=== PATIENT | female | born 1965 | race Caucasian/White ===

== ENCOUNTER 2016-09-09 20:33 | Emergency (ER) | payer OTHER ==
--- NOTE | 2016-09-10 00:03 | DIAGNOSTIC IMAGING REPORT ---
PROCEDURE: ABDOMEN/PELVIS WITH CONTRAST CLINICAL INDICATION: ABDOMINAL PAIN TECHNIQUE: 125 ml of Isovue 300 were injected intravenously and axial images were obtained of the abdomen and pelvis with sagittal and coronal reformations. COMPARISON: 04/04/2016 FINDINGS: ABDOMEN: Minor bibasilar atelectasis. Normal sized heart. No hiatal hernia. Peripherally calcified 19 mm gallstone in the fundus. Chronic dilatation of the left extrarenal pelvis with normal/diminutive caliber left ureter consistent with chronic or congenital ureteropelvic junction obstruction. Minimally prominent right extrarenal pelvis. The liver, adrenal glands, pancreas and spleen are normal. The abdominal aorta is normal in its course and caliber. Minor atherosclerosis. There are no suspicious calcifications, retroperitoneal adenopathy or masses. The stomach, upper bowel loops, and mesentery are normal. Intact anterior abdominal wall. No free fluid or inflammation. PELVIS: The appendix and pelvic small bowel loops are normal. Normal amount of stool in the colon and rectum. The uterus is surgically absent. The urinary bladder, and pelvic vessels are normal. No adenopathy, free fluid, or pelvic mass. Degenerative disc endplate change at L4-5. IMPRESSION: 1. No acute process. 2. 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 3. Cholelithiasis. 4. No evidence of diverticulitis. 5. Findings called to the emergency room. All CT scans at this facility use dose modulation, iterative reconstruction, and/or weight-based dosing when appropriate to reduce radiation dose to as low as reasonably achievable.
--- NOTE | 2016-09-10 00:05 | ED NURSING NOTES ---
Clinical Report - Nurses [facility] [address] [place] [address] 09/09/2016 20:33 Patient: DAVID LAND TRIAGE Triage time 2100 PM. Acuity: LEVEL 3. Chief Complaint: ABDOMINAL PAIN and NAUSEA and FLANK PAIN. Alert. No acute distress. --21:09 Pj Chow R.N. 20:59 09/09/16. BP: 124/73. HR: 73. RR: 16. O2 saturation: 97%. Temp: 98.7 F (oral). Pain level now: 02/27. --21:09 Pj Chow R.N. Weight: 77.1 kg estimated. Height/Length: 66 inches Estimated. BMI: 27.4. --00:18 jP Chow R.N. Medications Multivitamins Oral. --21:10 Pj Chow R.N. Allergies Antifungal. ASA. Avelox. --21:10 Pj Chow R.N. Azithromycin. Carbamazepine. Celecoxib. Cephalosporins. Flagyl. Fomepizole. Gabapentin. Imidazole Antifungals. Imitrex. Indocin. Lyrica. Miclol. Naprosyn. PCN. Percocet. Percodan. Quinolones. Rofecoxib. Salicylates. Toradol. Tramadol HCL. --21:10 Pj Chow R.N. History Arrived by private vehicle. Historian: patient. Accompanied by family. This started today. Onset was abrupt. Worsened while participating in moderate exertion. Symptoms are constant (about 4:30 to 5pm this afternoon while at [employer]). She has had nausea. Treatment HEART SURGEON: Applied heat. Took Tylenol and ibuprofen. PAST MEDICAL HX: Immunizations: up-to-date. SOCIAL HX: Never smoker. Occasional alcohol use. History of drug use. (no). FALL RISK ASSESSMENT: Fall risk assessment completed. No fall risk identified. NUTRITIONAL RISK ASSESSMENT: The nutritional risk assessment revealed no deficiencies. FUNCTIONAL ASSESSMENT: Functional assessment: no impairments noted. LEARNING NEEDS ASSESSMENT: The learning needs assessment revealed no barriers. SKIN INTEGRITY ASSESSMENT: Skin integrity risk assessment completed. No skin integrity risk identified. --: Pj Chow R.N. PROBLEMS: Diverticulitis. Abdominal Pain. Cystitis. Herniated Disk. Hypertension. Sprain. Otitis Media. Otitis Externa. Paget's Disease. Fall. Contusion. Asthma. Back Pain. --21: Pj Chow R.N. ADDITIONAL SURGERIES: . Fracture Repair. Hysterectomy. Knee Surgery. Laparoscopy. Shoulder Surgery. --21: Pj Chow R.N. Interventions ID band on patient. To treatment room. --: Pj Chow R.N. PHYSICAL ASSESSMENT Ambulatory to room. GENERAL / NEURO / PSYCH: Alert. Oriented X 4. Appears in no acute distress. HEENT: Mucous membranes are pink. RESPIRATORY: Respirations not labored. Breath sounds within normal limits. CVS: Normal sinus rhythm noted. Capillary refill less than 2 seconds. GI / : The patient has had nausea. Abdominal tenderness in the left upper quadrant, left side of the abdomen and left lower quadrant. Guarding present. SKIN: Skin is warm and dry. --: Pj Chow R.N. NURSING PROGRESS NOTES 21:09/09/2016 Site #1 started via IV in the left antecubital space with an 18g angiocath; one attempt. Blood drawn: rainbow set. Labeled in the presence of the patient and sent to the lab. Saline lock flushed. --: Pj Chow R.N. :09/09/2016 Started IV Fluids IV NS (Saline); bolus of 500 mL wide open then at 125 mL/hr over 4 hour(s) via site #1. Allergies verified and confirmed 5 rights. IV patency established. IV site checked: no pain, redness, or swelling. IV flushed thoroughly pre- and post-medication administration. --: Pj Chow R.N. 09/09/2016 Dilaudid (HYDROmorphone HCl PF) IVP 0.5 mg given over 2 minute(s) via site #1. Allergies verified, confirmed 5 rights and sedative warning given to the patient. IV patency established. IV site checked: no pain, redness, or swelling. IV flushed thoroughly pre- and post-medication administration. IVP given by RN. --: Pj Chow R.N. 21:09/09/2016 Zofran (Ondansetron HCl) IVP 4 mg given over 2 minute(s) via site #1. Allergies verified and confirmed 5 rights. IV patency established. IV site checked: no pain, redness, or swelling. IV flushed thoroughly pre- and post-medication administration. IVP given by RN. --: Pj Chow R.N. Reassurance given. Call light placed in reach. Side rails up x 2. Bed placed in lowest position. Brakes of bed on. --:28 Pj Chow R.N. DISPOSITION / DISCHARGE Condition at departure: improved. The goals identified in the patient's plan of care were met. No learning barriers present. Reviewed medication(s) side effects, precautions, dosing and course information. Prescription(s) given to the patient. Patient verbalized understanding. Written instructions provided in Vietnamese. The patient was discharged home and accompanied by family. She left the Emergency Department ambulatory and via private vehicle. Family member driving. FALL RISK ASSESSMENT: Fall risk assessment completed. No fall risk identified. --00:17 Pj Chow R.N. 00:15 09/10/16. BP: 156/87. HR: 70. RR: 16. O2 saturation: 99%. Temp: 98 F. Pain level now: 02/27. --00:17 Pj Chow R.N. Departure time: 0018 AM. --00:18 Pj Chow R.N. 00:18 09/10/2016 Site #1 removed upon discharge. Catheter intact. Pressure dressing applied. --00:18 Pj Chow R.N. 00:18 09/10/2016 IV Fluids IV NS Discontinued: bag #1 upon discharge. Total amount infused: 400 mL. IV patency established. IV site checked: no pain, redness, or swelling. IV flushed thoroughly. --00:18 Pj Chow R.N. Locked/Released at 09/10/2016 0:20 by Pj Chow R.N.
--- NOTE | 2016-09-10 00:05 | ED ORDER SUMMARY ---
..... Patient: DAVID LAND OrderSheet [facility] VisitID: [id number] [address] [place] [address] 51y, F Registration Date/Time: 09/09/2016 ORDER SHEET Weight: 77.1 kg (estimated) Allergies: Antifungal, ASA, Avelox, Azithromycin, Carbamazepine, Celecoxib, Cephalosporins, Flagyl, Fomepizole, Gabapentin, Imidazole Antifungals, Imitrex, Indocin, Lyrica, Miclol, Naprosyn, PCN, Percocet, Percodan, Quinolones, Rofecoxib, Salicylates, Toradol, Tramadol HCL GENERAL ORDERS: UA-Culture if indicated Urgent (20:55 09/09/2016 HOShaughnessy R.N. per protocol) (Ack 20:57 LMuller) (21:12 HOShaughnessy R.N.) Urine Urgent (20:55 09/09/2016 HOShaughnessy R.N. per protocol) (Ack 20:57 LMuller) (21:12 HOShaughnessy R.N.) CBC w Diff Urgent (21:09/09/2016 Sarmad MALONE) (Ack 21:12 LMuller) (21:24 HOShaughnessy R.N.) CMP Urgent (21:09/09/2016 Sarmad MALONE) (Ack 21:12 LMuller) (21:24 HOShaughnessy R.N.) Amylase Urgent (21:09/09/2016 Sarmad MALONE) (Ack 21:12 LMuller) (21:24 HOShaughnessy R.N.) Lipase Urgent (21:09/09/2016 Sarmad MALONE) (Ack 21:12 LMuller) (21:24 HOShaughnessy R.N.) NPO (21:09/09/2016 Sarmad MALONE) (21:24 HOShaughnessy R.N.) CT Abd/Pel w Cont (No) (see report) Urgent (23:28 09/09/2016 Sarmad MALONE) (23:38 LMuller) MEDICATION ORDERS: IV FLUIDS: IV NS : initial bolus 500 mL (1000 mL/hr), then 125 mL/hr for 4h (NOW); Urgent (21:09/09/2016 Sarmad MALONE) (21:26 Bernardo R.N.) Dilaudid IV 0.5 mg (HIGH ALERT MEDICATION, NOW) (21:09/09/2016 Sarmad MALONE) (21:26 Bernardo Iverson.N.) Zofran IV 4 mg (NOW) (21:09/09/2016 Sarmad MALONE) (21:26 Bernardo R.N.) ORDER SHEET NOTES: [Electronically signed by Pj Chow R.N. (00:20 09/10/2016)] [Electronically signed by Fausto Parker MD (07:53 09/10/2016)] [Electronically locked/signed by Pj Chow R.N. (00:20 09/10/2016)]
--- NOTE | 2016-09-10 00:05 | ED ORDER SUMMARY ---
..... Patient: DAVID LAND OrderSheet [facility] VisitID: [id number] [address] [place] [address] 51y, F Registration Date/Time: 09/09/2016 ORDER SHEET Weight: 77.1 kg (estimated) Allergies: Antifungal, ASA, Avelox, Azithromycin, Carbamazepine, Celecoxib, Cephalosporins, Flagyl, Fomepizole, Gabapentin, Imidazole Antifungals, Imitrex, Indocin, Lyrica, Miclol, Naprosyn, PCN, Percocet, Percodan, Quinolones, Rofecoxib, Salicylates, Toradol, Tramadol HCL GENERAL ORDERS: UA-Culture if indicated Urgent (20:55 09/09/2016 HOShaughnessy R.N. per protocol) (Ack 20:57 LMuller) (21:12 HOShaughnessy R.N.) Urine Urgent (20:55 09/09/2016 HOShaughnessy R.N. per protocol) (Ack 20:57 LMuller) (21:12 HOShaughnessy R.N.) CBC w Diff Urgent (21:09/09/2016 Sarmad MALONE) (Ack 21:12 LMuller) (21:24 HOShaughnessy R.N.) CMP Urgent (21:09/09/2016 Sarmad MALONE) (Ack 21:12 LMuller) (21:24 HOShaughnessy R.N.) Amylase Urgent (21:09/09/2016 Sarmad MALONE) (Ack 21:12 LMuller) (21:24 HOShaughnessy R.N.) Lipase Urgent (21:09/09/2016 Sarmad MALONE) (Ack 21:12 LMuller) (21:24 HOShaughnessy R.N.) NPO (21:09/09/2016 Sarmad MALONE) (21:24 HOShaughnessy R.N.) CT Abd/Pel w Cont (No) (see report) Urgent (23:28 09/09/2016 Sarmad MALONE) (23:38 LMuller) MEDICATION ORDERS: IV FLUIDS: IV NS : initial bolus 500 mL (1000 mL/hr), then 125 mL/hr for 4h (NOW); Urgent (21:09/09/2016 Sarmad MALONE) (21:26 Bernardo R.N.) Dilaudid IV 0.5 mg (HIGH ALERT MEDICATION, NOW) (21:09/09/2016 Sarmad MALONE) (21:26 Bernardo Iverson.N.) Zofran IV 4 mg (NOW) (21:09/09/2016 Sarmad MALONE) (21:26 Bernardo R.N.) ORDER SHEET NOTES: [Electronically signed by Pj Chow R.N. (00:20 09/10/2016)] [Electronically signed by Fausto Parker MD (07:53 09/10/2016)] [Electronically locked/signed by Pj Chow R.N. (00:20 09/10/2016)]
--- NOTE | 2016-09-10 00:05 | ED CLINICAL REPORT ---
Clinical Report - Physicians/Mid Levels [facility] [address] [place] [address] 09/09/2016 20:33 Patient: DAVID LAND Time Seen: 21:03. Arrived- By private vehicle. Historian- patient. HISTORY OF PRESENT ILLNESS Chief Complaint: ABDOMINAL PAIN. At its maximum, severity described as 9 / 10. When seen in the E.D., severity described as 8 / 10. Modifying factors- worsened by movement. This started today about 4:30 PM and is still present. It was abrupt in onset and has been constant. It is described as sharp. No radiation. It is described as located in the left abdomen and left lower quadrant. The patient has had nausea and loss of appetite. No vomiting or diarrhea. No recent travel. REVIEW OF SYSTEMS Has had a hysterectomy. Last bowel movement: today. All systems otherwise negative, except as recorded above. PAST HISTORY PCP - Fahad. Problems: Diverticulitis. Abdominal Pain. Cystitis. Herniated Disk. Hypertension. Sprain. Otitis Media. Paget's Disease. Fall. Contusion. Asthma. Back Pain. Medications: Multivitamins Oral. Allergies: Antifungal. ASA. Avelox. Azithromycin. Carbamazepine. Celecoxib. Cephalosporins. Flagyl. Fomepizole. Gabapentin. Imidazole Antifungals. Imitrex. Indocin. Lyrica. Miclol. Naprosyn. PCN. Percocet. Percodan. Quinolones. Rofecoxib. Salicylates. Toradol. Tramadol HCL. SOCIAL HISTORY Never smoker. Occasional alcohol use. No drug use. Residence: [place]. FAMILY HISTORY Heart disease in first-degree relative (father); stroke in grandparent; cancer in grandparent. ADDITIONAL NOTES The nursing notes have been reviewed. PHYSICAL EXAM Vital Signs: 09/09/2016 20:59 BP: 124/73. HR: 73. RR: 16. O2 saturation: 97%. Temp: 98.7 F. Pain level now: 8/10. Have been reviewed. Appearance: Alert. Eyes: Pupils equal, round and reactive to light. ENT: Pharynx normal. Neck: Neck supple. CVS: Normal heart rate and rhythm. Heart sounds normal. Respiratory: No respiratory distress. Breath sounds normal. Abdomen: Soft. Mild tenderness in the left side of the abdomen. Bowel sounds normal. No organomegaly. No mass. Back: Normal inspection. No CVA tenderness. Skin: Skin warm and dry. Normal skin color. Normal skin turgor. Extremities: Extremities exhibit normal ROM. No calf tenderness. No lower extremity edema. LABS, X-RAYS, AND EKG Abdominal CT: No diverticulitis. no acute disease. The study was interpreted contemporaneously by me and discussed with the radiologist. Laboratory Tests: UA-Culture if indicated: (SUDHAKAR: 09/09/2016 20:52) ( [facility] [place] 21:16) Final results Test Result Flag Units (Reference) URINE COLOR YELLOW URINE APPEARANCE CLEAR URINE GLUCOSE NEGATIVE (NEGATIVE) URINE BILIRUBIN NEGATIVE (NEGATIVE) URINE KETONE NEGATIVE (NEGATIVE) URINE SPECIFIC GRAVITY 1.020 (1.010-1.030) URINE PH 7.0 (5.0-8.0) URINE PROTEIN NEGATIVE (NEGATIVE) URINE UROBILINOGEN 0.2 EU/dL (0.2-1.0) URINE NITRITE NEGATIVE (NEGATIVE) URINE BLOOD NEGATIVE (NEGATIVE) URINE LEUK ESTERASE NEGATIVE (NEGATIVE) URINE RBC NONE SEEN rbc/hpf (0-1) URINE WBC 0-1 wbc/hpf (0-1) URINE EPITHELIAL CELLS 1-3 EPI/hpf (0-5) URINE BACTERIA NONE SEEN (NONE SEEN) URINE COMMENT CULT NOT INDICATED 1+ AMORPHOUSURINE CULTURES ARE SET-UP BASED ON THE FOLLOWING CRITERIA:POSITIVE NITRITEPOSITIVE LEUKOCYTE ESTERASEGREATER THAN 10 WHITE BLOOD CELLSMODERATE (2+) OR GREATER BACTERIA Urine: (SUDHAKAR: 09/09/2016 20:52) ( [facility] [place]/09/[place] 21:07) Final results Test Result Flag Units (Reference) URINE NEGATIVE CBC w Diff: (SUDHAKAR: 09/09/2016 21:21) ( [place]cv[place] 09/09/2016 21:43) Final results Test Result Flag Units (Reference) WHITE BLOOD COUNT 7.5 K/uL (4.5-11.5) RED BLOOD COUNT 4.25 M/uL (4.00-5.20) HEMOGLOBIN 13.3 gm/dL (12.0-16.0) HEMATOCRIT 39.3 % (36.0-46.0) MEAN CELL VOLUME 93 fL (80-100) MEAN CORPUSCULAR HGB 31 pg (26-34) MEAN CORPUSCULAR HGB CONC 34 g/dL (31-37) RED CELL DISTRIBUTION WIDTH 13.0 % (11.6-14.8) PLATELET COUNT 289 K/uL (150-400) NEUTROPHIL % 63.6 % (50-75) LYMPH % 29.3 % (25-40) MONO % 5.8 % (3-14) EOSINOPHIL % 0.8 % (0-4) BASOPHIL % 0.5 % (0-2) CMP: (SUDHAKAR: 09/09/2016 21:21) ( MsgRcvd 09/09/2016 21:58) Final results Test Result Flag Units (Reference) GLUCOSE 101 mg/dL (70-110) BUN 18 mg/dL (7-18) CREATININE 0.8 mg/dL (0.6-1.3) Estimated GFR >60 mL/min Estimated GFR- >60 mL/min Note: Persistent reduction over 3 months in eGFR<60 mL/min/1.73 m2 defines CKD. Patients with eGFR values>=60 mL/min/1.73 m2 may also have CKD if evidence ofpersistent proteinuria. Additional information may be foundat www.kidney.org. SODIUM 143 mmol/L (136-145) POTASSIUM 3.9 mmol/L (3.5-5.1) CHLORIDE 105 mmol/L (98-107) CARBON DIOXIDE 28 mmol/L (21-32) CALCIUM 8.7 mg/dL (8.5-10.1) TOTAL PROTEIN 7.1 g/dL (6.4-8.2) ALBUMIN 3.9 g/dL (3.3-5.0) BILIRUBIN, TOTAL 0.2 mg/dL (0.0-1.0) ALKALINE PHOSPHATASE 65 U/L (46-116) AST (SGOT) 13 L U/L (15-37) ALT (SGPT) 26 U/L (12-78) LIPASE 193 U/L (73-393) AMYLASE 44 U/L (25-115) . PROGRESS AND PROCEDURES Course of Care: Patient is stable. Patient/family counseled. Old medical records reviewed. Disposition: Discharged. Condition: stable. CLINICAL IMPRESSION Acute left lower quadrant abdominal pain of undetermined cause. INSTRUCTIONS Drink plenty of fluids. Warnings: Further evaluation is necessary. GENERAL WARNINGS: Return or contact your physician immediately if your condition worsens or changes unexpectedly, if not improving as expected, or if other problems arise. Your Current Medications: CONTINUE TAKING THE FOLLOWING MEDICATIONS: Multivitamins Oral. OTC Medications: Tylenol (available over the counter): take according to label instructions. Follow-up: Follow up with your doctor Dr. Vásquez tomorrow. Call for an appointment. Understanding of the discharge instructions verbalized by patient. (Electronically signed by Fausto Parker MD 09/10/2016 7:53)
--- NOTE | 2016-09-10 00:05 | ED NURSING NOTES ---
Clinical Report - Nurses [facility] [address] [place] [address] 09/09/2016 20:33 Patient: DAVID LAND TRIAGE Triage time 2100 PM. Acuity: LEVEL 3. Chief Complaint: ABDOMINAL PAIN and NAUSEA and FLANK PAIN. Alert. No acute distress. --21:09 Pj Chow R.N. 20:59 09/09/16. BP: 124/73. HR: 73. RR: 16. O2 saturation: 97%. Temp: 98.7 F (oral). Pain level now: 02/27. --21:09 Pj Chow R.N. Weight: 77.1 kg estimated. Height/Length: 66 inches Estimated. BMI: 27.4. --00:18 Pj Chow R.N. Medications Multivitamins Oral. --21:10 Pj Chow R.N. Allergies Antifungal. ASA. Avelox. --21:10 Pj Chow R.N. Azithromycin. Carbamazepine. Celecoxib. Cephalosporins. Flagyl. Fomepizole. Gabapentin. Imidazole Antifungals. Imitrex. Indocin. Lyrica. Miclol. Naprosyn. PCN. Percocet. Percodan. Quinolones. Rofecoxib. Salicylates. Toradol. Tramadol HCL. --21:10 Pj Chow R.N. History Arrived by private vehicle. Historian: patient. Accompanied by family. This started today. Onset was abrupt. Worsened while participating in moderate exertion. Symptoms are constant (about 4:30 to 5pm this afternoon while at [place]). She has had nausea. 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 Took Tylenol and ibuprofen. PAST MEDICAL HX: Immunizations: up-to-date. SOCIAL HX: Never smoker. Occasional alcohol use. History of drug use. (no). FALL RISK ASSESSMENT: Fall risk assessment completed. No fall risk identified. NUTRITIONAL RISK ASSESSMENT: The nutritional risk assessment revealed no deficiencies. FUNCTIONAL ASSESSMENT: Functional assessment: no impairments noted. LEARNING NEEDS ASSESSMENT: The learning needs assessment revealed no barriers. SKIN INTEGRITY ASSESSMENT: Skin integrity risk assessment completed. No skin integrity risk identified. --: Pj Chow R.N. PROBLEMS: Diverticulitis. Abdominal Pain. Cystitis. Herniated Disk. Hypertension. Sprain. Otitis Media. Otitis Externa. Paget's Disease. Fall. Contusion. Asthma. Back Pain. --21: Pj Chow R.N. ADDITIONAL SURGERIES: . Fracture Repair. Hysterectomy. Knee Surgery. Laparoscopy. Shoulder Surgery. --21: Pj Chow R.N. Interventions ID band on patient. To treatment room. --: Pj Chow R.N. PHYSICAL ASSESSMENT Ambulatory to room. GENERAL / NEURO / PSYCH: Alert. Oriented X 4. Appears in no acute distress. HEENT: Mucous membranes are pink. RESPIRATORY: Respirations not labored. Breath sounds within normal limits. CVS: Normal sinus rhythm noted. Capillary refill less than 2 seconds. GI / : The patient has had nausea. Abdominal tenderness in the left upper quadrant, left side of the abdomen and left lower quadrant. Guarding present. SKIN: Skin is warm and dry. --: Pj Chow R.N. NURSING PROGRESS NOTES 21:09/09/2016 Site #1 started via IV in the left antecubital space with an 18g angiocath; one attempt. Blood drawn: rainbow set. Labeled in the presence of the patient and sent to the lab. Saline lock flushed. --: Pj Chow R.N. :09/09/2016 Started IV Fluids IV NS (Saline); bolus of 500 mL wide open then at 125 mL/hr over 4 hour(s) via site #1. Allergies verified and confirmed 5 rights. IV patency established. IV site checked: no pain, redness, or swelling. IV flushed thoroughly pre- and post-medication administration. --: Pj Chow R.N. 09/09/2016 Dilaudid (HYDROmorphone HCl PF) IVP 0.5 mg given over 2 minute(s) via site #1. Allergies verified, confirmed 5 rights and sedative warning given to the patient. IV patency established. IV site checked: no pain, redness, or swelling. IV flushed thoroughly pre- and post-medication administration. IVP given by RN. --: Pj Chow R.N. 21:09/09/2016 Zofran (Ondansetron HCl) IVP 4 mg given over 2 minute(s) via site #1. Allergies verified and confirmed 5 rights. IV patency established. IV site checked: no pain, redness, or swelling. IV flushed thoroughly pre- and post-medication administration. IVP given by RN. --: Pj Chow R.N. Reassurance given. Call light placed in reach. Side rails up x 2. Bed placed in lowest position. Brakes of bed on. --:28 Pj Chow R.N. DISPOSITION / DISCHARGE Condition at departure: improved. The goals identified in the patient's plan of care were met. No learning barriers present. Reviewed medication(s) side effects, precautions, dosing and course information. Prescription(s) given to the patient. Patient verbalized understanding. Written instructions provided in Urdu. The patient was discharged home and accompanied by family. She left the Emergency Department ambulatory and via private vehicle. Family member driving. FALL RISK ASSESSMENT: Fall risk assessment completed. No fall risk identified. --00:17 Pj Chow R.N. 00:15 09/10/16. BP: 156/87. HR: 70. RR: 16. O2 saturation: 99%. Temp: 98 F. Pain level now: 02/27. --00:17 Pj Chow R.N. Departure time: 0018 AM. --00:18 Pj Chow R.N. 00:18 09/10/2016 Site #1 removed upon discharge. Catheter intact. Pressure dressing applied. --00:18 Pj Chow R.N. 00:18 09/10/2016 IV Fluids IV NS Discontinued: bag #1 upon discharge. Total amount infused: 400 mL. IV patency established. IV site checked: no pain, redness, or swelling. IV flushed thoroughly. --00:18 Pj Chow R.N. Locked/Released at 09/10/2016 0:20 by Pj Chow R.N.
--- NOTE | 2016-09-10 07:54 | ED MAR SUMMARY ---
..... Medication Administration Record [facility] [address] [place] [address] Patient: DAVID LAND Visit ID: [id number] 51y, F Weight: 77.1 kg Height/Length: 66 in BMI: 27.4 ALLERGIES: Antifungal, ASA, Avelox, Azithromycin, Carbamazepine, Celecoxib, Cephalosporins, Flagyl, Fomepizole, Gabapentin, Imidazole Antifungals, Imitrex, Indocin, Lyrica, Miclol, Naprosyn, PCN, Percocet, Percodan, Quinolones, Rofecoxib, Salicylates, Toradol, Tramadol HCL Start 21:09/09/2016 Pj Chow R.N., Stop 00:18 09/10/2016 Pj Chow R.N. Medication Administered: IV NS (SALINE), Dose: IV Fluids over 4 hour(s), Rate: 125 mL/hr, Bolus: 500 mL wide open, Site: #1 left AC. Medication Ordered: IV NS : initial bolus 500 mL (1000 mL/hr), then 125 mL/hr for 4h (NOW); Urgent. Given 09/09/2016 Pj Chow R.N. Medication Administered: DILAUDID [IVP] (HYDROMORPHONE HCL PF), Dose: 0.5 mg IVP over 2 minute(s), Site: #1 left AC. Medication Ordered: Dilaudid IV 0.5 mg (HIGH ALERT MEDICATION, NOW). Given 09/09/2016 Pj Chow R.N. Medication Administered: ZOFRAN [IVP] (ONDANSETRON HCL), Dose: 4 mg IVP over 2 minute(s), Site: #1 left AC. Medication Ordered: Zofran IV 4 mg (NOW).
--- NOTE | 2016-09-10 07:54 | ED MED RECONCILIATION SUMMARY ---
Patient: DAVID LAND Medication Reconciliation Report [facility] VisitID: [id number] [address] [place] [address] 51y, F Registration Date/Time: 09/09/2016 Weight: 77.1 kg Height/Length: 66 in. BMI: 27.4 ALLERGIES: Antifungal, ASA, Avelox, Azithromycin, Carbamazepine, Celecoxib, Cephalosporins, Flagyl, Fomepizole, Gabapentin, Imidazole Antifungals, Imitrex, Indocin, Lyrica, Miclol, Naprosyn, PCN, Percocet, Percodan, Quinolones, Rofecoxib, Salicylates, Toradol, Tramadol HCL The patient's Home Medications are listed below: CONTINUE TAKING THE FOLLOWING MEDICATIONS: Multivitamins Oral The source(s) of the original Home Medication information: Not obtained. The following Medications were given to the patient in the Emergency Department: IV NS IV Fluids bolus 500 mL wide open, then 125 mL/hr, administered: 09/09/2016 9:26:00 PM Dilaudid [IVP] IVP 0.5 mg, administered: 09/09/2016 9:26:00 PM Zofran [IVP] IVP 4 mg, administered: 09/09/2016 9:26:00 PM The following Medications were prescribed to the patient: Tylenol (available over the counter): take according to label instructions. -- Fausto Parker MD
--- NOTE | 2016-09-10 07:54 | ED MAR SUMMARY ---
..... Medication Administration Record [facility] [address] [place] [address] Patient: DAVID LAND Visit ID: [id number] 51y, F Weight: 77.1 kg Height/Length: 66 in BMI: 27.4 ALLERGIES: Antifungal, ASA, Avelox, Azithromycin, Carbamazepine, Celecoxib, Cephalosporins, Flagyl, Fomepizole, Gabapentin, Imidazole Antifungals, Imitrex, Indocin, Lyrica, Miclol, Naprosyn, PCN, Percocet, Percodan, Quinolones, Rofecoxib, Salicylates, Toradol, Tramadol HCL Start 21:09/09/2016 Pj Chow R.N., Stop 00:18 09/10/2016 Pj Chow R.N. Medication Administered: IV NS (SALINE), Dose: IV Fluids over 4 hour(s), Rate: 125 mL/hr, Bolus: 500 mL wide open, Site: #1 left AC. Medication Ordered: IV NS : initial bolus 500 mL (1000 mL/hr), then 125 mL/hr for 4h (NOW); Urgent. Given 09/09/2016 Pj Chow R.N. Medication Administered: DILAUDID [IVP] (HYDROMORPHONE HCL PF), Dose: 0.5 mg IVP over 2 minute(s), Site: #1 left AC. Medication Ordered: Dilaudid IV 0.5 mg (HIGH ALERT MEDICATION, NOW). Given 09/09/2016 Pj Chow R.N. Medication Administered: ZOFRAN [IVP] (ONDANSETRON HCL), Dose: 4 mg IVP over 2 minute(s), Site: #1 left AC. Medication Ordered: Zofran IV 4 mg (NOW).
--- NOTE | 2016-09-10 07:54 | ED MED RECONCILIATION SUMMARY ---
Patient: DAVDI LAND Medication Reconciliation Report [facility] VisitID: [id number] [address] [place] [address] 51y, F Registration Date/Time: 09/09/2016 Weight: 77.1 kg Height/Length: 66 in. BMI: 27.4 ALLERGIES: Antifungal, ASA, Avelox, Azithromycin, Carbamazepine, Celecoxib, Cephalosporins, Flagyl, Fomepizole, Gabapentin, Imidazole Antifungals, Imitrex, Indocin, Lyrica, Miclol, Naprosyn, PCN, Percocet, Percodan, Quinolones, Rofecoxib, Salicylates, Toradol, Tramadol HCL The patient's Home Medications are listed below: CONTINUE TAKING THE FOLLOWING MEDICATIONS: Multivitamins Oral The source(s) of the original Home Medication information: Not obtained. The following Medications were given to the patient in the Emergency Department: IV NS IV Fluids bolus 500 mL wide open, then 125 mL/hr, administered: 09/09/2016 9:26:00 PM Dilaudid [IVP] IVP 0.5 mg, administered: 09/09/2016 9:26:00 PM Zofran [IVP] IVP 4 mg, administered: 09/09/2016 9:26:00 PM The following Medications were prescribed to the patient: Tylenol (available over the counter): take according to label instructions. -- Fausto Parker MD
--- NOTE | 2016-09-10 07:54 | ED DISCHARGE INSTRUCTIONS ---
Patient: DAVID LAND General Instructions [facility] VisitID: [id number] [address] [place] [address] 51y, F Registration Date/Time: 09/09/2016 Acute left lower quadrant abdominal pain of undetermined cause. INSTRUCTIONS Drink plenty of fluids. Warnings: Further evaluation is necessary. GENERAL WARNINGS: Return or contact your physician immediately if your condition worsens or changes unexpectedly, if not improving as expected, or if other problems arise. Your Current Medications: CONTINUE TAKING THE FOLLOWING MEDICATIONS: Multivitamins Oral. OTC Medications: Tylenol (available over the counter): take according to label instructions. Follow-up: Follow up with your doctor Dr. Vásquez tomorrow. Call for an appointment. Understanding of the discharge instructions verbalized by patient. ADDITIONAL INFORMATION Abdominal Pain, Unknown Cause (Female) The exact cause of your abdominal (stomach) pain is not certain. This does not mean that this is something to worry about, or the right tests were not done. Everyone likes to know the exact cause of the problem, but sometimes with abdominal pain, there is no clear-cut cause, and this could be a good thing. The good news is that your symptoms can be treated, and you will feel better. Your condition does not seem serious now; however, sometimes the signs of a serious problem may take more time to appear. For this reason,it is important for you to watch for any new symptoms, problems,or worsening of your condition. Over the next few days, the abdominal pain may come and go, or be continuous. Other common symptoms can include nausea and vomiting. Sometimes it can be difficult to tell if you feel nauseous, you may just feel bad and not associate that feeling with nausea. Constipation, diarrhea, and a fever may go along with the pain. The pain may continue even if treated correctly over the following days. Depending on how things go, sometimes the cause can become clear and may require further or different treatment. Additional evaluations, medications, or tests may be needed. Home care Your health care provider may prescribe medications for pain, symptoms, or an infection. Follow the health care provider's instructions for taking these medications. General care Rest until your next exam. No strenuous activities. Try to find positions that ease discomfort. A small pillow placed on the abdomen may help relieve pain. Something warm on your abdomen (such as a heating pad) may help, but be careful not to burn yourself. Diet Do not force yourself to eat, especially if having cramps, vomiting, or diarrhea. Water is important so you do not get dehydrated. Soup may also be good. Sports drinks may also help, especially if they are not too acidic. Make sure you don't drink sugary drinks as this can make things worse. Take liquids in small amounts. Do not guzzle them. Caffeine sometimes makes the pain and cramping worse. Avoid dairy products if you have vomiting or diarrhea. Don't eat large amounts at a time. Wait a few minutes between bites. Eat a diet low in fiber (called a low-residue diet). Foods allowed include refined breads, white rice, fruit and vegetable juices without pulp, tender meats. These foods will pass more easily through the intestine. Avoid whole-grain foods, whole fruits and vegetables, meats, seeds and nuts, fried or fatty foods, dairy, alcohol and spicy foods until your symptoms go away. Follow-up care Follow up with your health care provider as instructed, or if your pain does not begin to improve in the next 24 hours. When to seek medical care Seek prompt medical care if any of the following occur: Pain gets worse or moves to the right lower abdomen New or worsening vomiting or diarrhea Swelling of the abdomen Unable to pass stool for more than three days Fever of 100.4F (38C) or higher, or as directed by your healthcare provider. Blood in vomit or bowel movements (dark red or black color) Jaundice (yellow color of eyes and skin) Weakness, dizziness Chest, arm, back, neck or jaw pain Unexpected vaginal bleeding or missed period Call 911 Call emergency services if any of the following occur: Trouble breathing Confusion Fainting or loss of consciousness Rapid heart rate Seizure Acetaminophen Oral tablet What is this medicine? ACETAMINOPHEN (a set a NOHELIA vandana fen) is a pain reliever. It is used to treat mild pain and fever. How should I use this medicine? Take this medicine by mouth with a glass of water. Follow the directions on the package or prescription label. Take your medicine at regular intervals. Do not take your medicine more often than directed. Talk to your seed analyst regarding the use of this medicine in children. While this drug may be prescribed for children as young as 6 years of age for selected conditions, precautions do apply. What side effects may I notice from receiving this medicine? Side effects that you should report to your doctor or health resident care supervisor as soon as possible: allergic reactions like skin rash, itching or hives, swelling of the face, lips, or tongue breathing problems fever or sore throat redness, blistering, peeling or loosening of the skin, including inside the mouth trouble passing urine or change in the amount of urine unusual bleeding or bruising unusually weak or tired yellowing of the eyes or skin Side effects that usually do not require medical attention (report to your doctor or health resident care supervisor if they continue or are bothersome): headache nausea, stomach upset What may interact with this medicine? alcohol imatinib isoniazid other medicines with acetaminophen What if I miss a dose? If you miss a dose, take it as soon as you can. If it is almost time for your next dose, take only that dose. Do not take double or extra doses. Where should I keep my medicine? Keep out of reach of children. Store at room temperature between 20 and 25 degrees C (68 and 77 degrees F). Protect from moisture and heat. Throw away any unused medicine after the expiration date. What should I tell my health care provider before I take this medicine? They need to know if you have any of these conditions: if you frequently drink alcohol containing drinks liver disease an unusual or allergic reaction to acetaminophen, other medicines, foods, dyes or preservatives or trying to get breast-feeding What should I watch for while using this medicine? Tell your doctor or health resident care supervisor if the pain lasts more than 10 days (5 days for children), if it gets worse, or if there is a new or different kind of pain. Also, check with your doctor if a fever lasts for more than 3 days. Do not take other medicines that contain acetaminophen with this medicine. Always read labels carefully. If you have questions, ask your doctor or pharmacist. If you take too much acetaminophen get medical help right away. Too much acetaminophen can be very dangerous and cause liver damage. Even if you do not have symptoms, it is important to get help right away. You have been given the following additional information: Abdominal Pain, Unknown Cause, (Female) Acetaminophen Oral tablet (Electronically signed by Fausto Parker MD 09/10/2016 7:53)
== END 2016-09-10 00:20 | disposition home or self-care (01) ==
LOC: ED SRH 20:33
DX: R10.32 Left lower quadrant pain (principal); I10 Essential (primary) hypertension; J45.909 Unspecified asthma, uncomplicated; Z88.0 Allergy status to penicillin; Z88.8 Allergy status to other drugs, medicaments and biological substances; Z88.5 Allergy status to narcotic agent; Z88.1 Allergy status to other antibiotic agents
CPT/HCPCS: 90004; 90100; 92235; 92530; 93070; 95059